=== PATIENT | female | born 1980 | race African-American/Black ===

== ENCOUNTER 2021-06-29 20:30 | Emergency (ER) | payer OTHER ==
[~2021-06-29] VITALS: Ht 157.5 cm; Wt 70.9 kg
[2021-06-29 21:02] VITALS: BP 127/79
[2021-06-30] MEDS ORDERED: acetaminophen 325mg tablet PO ONE (02:50)
== END 2021-06-30 03:17 | disposition home or self-care (01) ==
LOC: ER 20:32
DX: S53.401A Unspecified sprain of right elbow, initial encounter (principal); S43.401A Unspecified sprain of right shoulder joint, initial encounter; Z88.0 Allergy status to penicillin; W19.XXXA Unspecified fall, initial encounter; Y93.89 Activity, other specified; Y92.89 Other specified places as the place of occurrence of the external cause; Y99.8 Other external cause status
CPT/HCPCS: 73080; 99283